=== PATIENT | male | born 1975 | race Two or more races ===

== ENCOUNTER 2016-10-26 08:59 | Emergency (ER) | payer BC ==
[2016-10-26 09:15] VITALS: BP 133/86
--- NOTE | 2016-10-26 10:32 | UC ---
Respiratory Complaint HPI - HPI Summary HPI Summary: 41 year old male presents complaining of ethmoid sinus pressure, post-nasal drip , ear discomfort, and cough x 2 weeks. Denies fever or GI symptoms. - History of Current Complaint Chief Complaint: UCRespiratory Stated Complaint: COUGH HEADACHE Hx Obtained From: Patient Onset/Duration: Gradual Onset Timing: Intermittent Episodes Severity Initially: Moderate Severity Currently: Moderate Character: Sputum Description: - Green watery - Allergies/Home Medications Allergies/Adverse Reactions: Allergies Allergy/AdvReac Type Severity Reaction Status Date / Time No Known Allergies Allergy Verified 01/12/14 14:19 PMH/Surg Hx/FS Hx/Imm Hx Previously Healthy: Yes Endocrine History Of: Denies: Diabetes, Thyroid Disease Cardiovascular History Of: Denies: Cardiac Disorders, Hypertension Respiratory History Of: Denies: COPD, Asthma GI/ History Of: Denies: Ulcer Neurological History Of: Denies: TIA, CVA, Dementia, Seizures, Migraine Psychological History Of: Denies: Anxiety, Depression, Bipolar Disorder, Schizophrenia, Post Traumatic Stress Disorder Other History Of: Negative For: Anticoagulant Therapy - Surgical History Surgical History: None - Family History Known Family History: Positive: Cardiac Disease - Unsure of type but ID hx, Hypertension - Mom, Diabetes - Mom - Social History Occupation: Employed Full-time - [place] Lives: With Family Alcohol Use: Occasionally Substance Use Type: None Smoking Status (MU): Light Every Day Tobacco Smoker Type: Cigarettes Amount Used/How Often: 5/cigs day Length of Time of Smoking/Using Tobacco: 2008 Have You Smoked in the Last Year: Yes Household Exposure Type: Cigarettes Cessation Counseling: Patient Advised to Stop Review of Systems Constitutional: Negative Skin: Negative Eyes: Negative ENT: Nasal Discharge, Other - Sinus congestion Respiratory: Cough Cardiovascular: Negative Gastrointestinal: Negative Genitourinary: Negative Motor: Negative Neurovascular: Negative Musculoskeletal: Negative Neurological: Negative Psychological: Negative All Other Systems Reviewed And Are Negative: Yes Physical Exam Triage Information Reviewed: Yes Appearance: Well-Appearing Vital Signs: Initial Vital Signs Temp 97.7 F 10/26/16 09:12 Pulse 71 10/26/16 09:12 Resp 18 10/26/16 09:12 BP 133/86 10/26/16 09:12 Pulse Ox 98 10/26/16 09:12 Vital Signs Reviewed: Yes Eye Exam: Normal Eyes: Positive: Conjunctiva Clear ENT Exam: Normal ENT: Positive: Pharynx normal, Nasal congestion, Nasal drainage, TMs normal, Other: - ethmoid pressure Dental Exam: Normal Neck exam: Normal Neck: Positive: Supple, Nontender, No Lymphadenopathy Respiratory Exam: Normal Respiratory: Positive: Chest non-tender, Lungs clear, Normal breath sounds, No respiratory distress, No accessory muscle use Cardiovascular Exam: Normal Cardiovascular: Positive: RRR, No Murmur, Pulses Normal Abdominal Exam: Normal Abdomen Description: Positive: Nontender Bowel Sounds: Positive: Present Musculoskeletal Exam: Normal Musculoskeletal: Positive: Strength Intact Neurological Exam: Normal Neurological: Positive: Alert Psychological Exam: Normal Skin Exam: Normal Diagnostic Evaluation - Laboratory O2 Sat by Pulse Oximetry: 98 Respiratory Course/Dx - Differential Dx/Diagnosis Provider Diagnoses: Upper Respiratory Infection. sinusitis Discharge - Discharge Plan Condition: Stable Disposition: HOME Prescriptions: Azithromycin TAB* [Zithromax TAB*] 250 mg PO SEE INSTRUCTIONS #6 tab Benzonatate CAP* [Tessalon CAP*] 100 mg PO TID PRN #30 cap PRN Reason: Cough Patient Education Materials: Upper Respiratory Infection (ED), Sinusitis (ED) Forms: *Work Release Referrals: Sulaiman Morales MD [Primary Care Provider] - If Needed (If new or worsening symptoms) Additional Instructions: Call or return if you develop increasing fever, shortness of breath, chest pain , bloody sputum, or otherwise worsen. If you have not improved at all after several days, contact your primary care physician or return here.
== END 2016-10-26 11:00 | disposition home or self-care (01) ==
LOC: UCEAST 08:59
DX: J06.9 Acute upper respiratory infection, unspecified (principal); J32.9 Chronic sinusitis, unspecified; F17.210 Nicotine dependence, cigarettes, uncomplicated
CPT/HCPCS: 99212; G0463

== ENCOUNTER 2017-11-11 09:38 | Emergency (ER) | payer BC ==
--- NOTE | 2017-11-11 11:40 | UC ---
Rosa Maria Steiner Julia, scribed for Satya De Oliveira MD on 11/11/17 at 1132 . FLU HPI - HPI Summary HPI Summary: This patient is a 42 year old M presenting to [facility] [place] accompanied by family with a chief complaint of fever and joint pain since 11/09/17. Patient reports L ear pain since 11/06/17. Patient report chills and body aches occurring later in the day. Patient has history of rheumatic fever. Patient has multiple influenza contacts at home. - History of Current Complaint Chief Complaint: UCEar Stated Complaint: EAR PAIN,FEVER, HEADACHE Time Seen by Provider: 11/11/17 10:42 Hx Obtained From: Patient Onset/Duration: Lasting Days Pain Intensity: 0 Associated Signs & Symptoms: Positive: Fever, Sore Throat Related Hx: Possible Flu/Infectious Exposure - Allergy/Home Medications Allergies/Adverse Reactions: Allergies Allergy/AdvReac Type Severity Reaction Status Date / Time No Known Allergies Allergy Verified 11/11/17 10:01 Home Medications: Home Medications Acetaminophen [Tylenol] 500 mg PO Q4HR PRN 11/11/17 [History Confirmed 11/11/17] PMH/Surg Hx/FS Hx/Imm Hx - Additional Past Medical History Additional PMH: hx of rheumatic fever Other History Of: Negative For: Anticoagulant Therapy - Surgical History Surgical History: None - Family History Known Family History: Positive: Cardiac Disease - Unsure of type but MS hx, Hypertension - Mom, Diabetes - Mom - Social History Alcohol Use: Occasionally Substance Use Type: None Smoking Status (MU): Light Every Day Tobacco Smoker Type: Cigarettes Amount Used/How Often: 5/cigs day Length of Time of Smoking/Using Tobacco: 2008 Have You Smoked in the Last Year: Yes Household Exposure Type: Cigarettes Review of Systems Constitutional: Fever, Chills - and body aches ENT: Sore Throat Musculoskeletal: Other: - joint pain All Other Systems Reviewed And Are Negative: Yes Physical Exam Triage Information Reviewed: Yes Vital Signs: Initial Vital Signs Temp 98.0 F 11/11/17 09:58 Pulse 79 11/11/17 09:58 Resp 14 11/11/17 09:58 BP 119/83 11/11/17 09:58 Pulse Ox 99 11/11/17 09:58 Vital Signs Reviewed: Yes - Additional Comments General: well-appearing, no pain distress Skin: warm, color reflects adequate perfusion, dry Head: normal Eyes: EOMI, BRENT ENT: serous otitis media of L, R TM not visible swollen ear canal with liquid in canal, rhinorrhea present, erythematous pharynx Neck: supple, nontender Respiratory: CTA, breath sounds present Cardiovascular: RRR Abdomen: soft, nontender Bowel: present Musculoskeletal: normal, strength/ROM intact Neurological: normal, sensory/motor intact, A&O x3 Psychological: affect/mood appropriate Flu Course/Dx - Course Course Of Treatment: DUE TO HX OF RHEUMATIC FEVER; LABS AND BLOOD CX DRAWN. - Differential Dx/Diagnosis Provider Diagnoses: UPPER RESPIRATORY TRACT INFECTION Discharge - Discharge Plan Condition: Stable Disposition: HOME Prescriptions: Amoxicillin/Clavulanate TAB* [Augmentin TAB 875*] 875 mg PO BID #20 tab Patient Education Materials: Upper Respiratory Infection (ED) Forms: *Work Release Referrals: Kiarra Urban MD [Primary Care Provider] - Additional Instructions: FOLLOW UP WITH YOUR DOCTOR. GET RECHECKED FOR ANY WORSENING OF YOUR CONDITION OR QUESTIONS OR CONCERNS. The documentation as recorded by the Rosa Maria eckert Julia accurately reflects the service I personally performed and the decisions made by me, Satya De Oliveira MD.
[2017-11-11 12:32] VITALS: BP 108/70
[2017-11-11 16:01] LABS: ABS Basophils 0.1 10^3/ul (0-0.2); ABS Eosinophils 0.2 10^3/ul (0-0.6); ABS Lymphocytes 2.2 10^3/ul (1.0-4.8); ABS Monocytes 1.1 10^3/ul (0-0.8); ABS Neutrophils 5.4 10^3/ul (1.5-7.7); ABS Nucleated RBC 0 10^3/ul; Eosinophil % 1.7 % (0-6); Hematocrit 46 % (42-52); Hemoglobin 15.9 g/dl (14.0-18.0); Lymphocyte % 24.4 % (25-47); Mean Corpuscular HGB Conc 35 g/dl (31-36); Mean Corpuscular Hemoglobin 30 pg (27-31); Mean Corpuscular Volume 88 fL (80-94); Mean Platelet Volume 10 um3 (7.4-10.4); Nucleated Red Blood Cells % 0.3; Platelet Count 192 10^3/ul (150-450); Red Blood Count 5.25 10^6/ul (4.0-5.4); Red Cell Distribution Width 14 % (10.5-15); White Blood Count 8.9 10^3/ul (3.5-10.8)
--- NOTE | 2017-11-12 13:01 | UC ---
- Progress Note Progress Note: PLS CALL PT. LABS WITH ELEVATED CRP. THIS IS A GENERALIZED MARKER OF INFLAMMATION. NO CHANGE IN MGMT AT THIS TIME. FOLLOW-UP PCP ADVISED. - AURY MCCOY MD
--- NOTE | 2017-11-12 16:40 | UC ---
- Progress Note Progress Note: blood cx - prelim no growth day #1 no change gertrude 11/12/2017 1640
== END 2017-11-11 12:01 | disposition home or self-care (01) ==
LOC: UCEAST 09:38
DX: J06.9 Acute upper respiratory infection, unspecified (principal); F17.210 Nicotine dependence, cigarettes, uncomplicated
CPT/HCPCS: 36415; 80053; 85025; 86140; 87040; 87502; 99212; G0463